=== PATIENT | female | born 1950 | race Caucasian/White ===

== ENCOUNTER 2019-08-15 08:10 | Outpatient (CLI) | payer MEDICARE, BC ==
[~2019-08-15] VITALS: Ht 167.6 cm; Wt 77.3 kg
[2019-08-15] VITALS (11 sets, daily range): BP systolic 127–154; BP diastolic 59–72
[2019-08-15] MEDS ORDERED: normal saline 500ml IV soln 500 ML IV ONE (09:45)
[2019-08-15] MEDS ORDERED: aminophylline 250mg/10ml inj. IV PRN (09:45)
[2019-08-15] MEDS ORDERED: regadenoson 0.4mg/5ml syringe IV PRN (09:45)
[2019-08-15] MEDS ORDERED: nitroGLYCERIN 0.4mg SUBLingual tab SL PRN (09:45)
== END 2019-08-15 23:59 | disposition home or self-care (01) ==
LOC: RAD 08:10
PROVIDERS: ATTEND Internal Medicine Cardiovascular Disease
DX: R94.30 Abnormal result of cardiovascular function study, unspecified (principal); R06.02 Shortness of breath; Z01.810 Encounter for preprocedural cardiovascular examination
CPT/HCPCS: 78452; 93017; A9500; J2785; J7040

== ENCOUNTER 2023-06-22 10:51 | Day surgery (SDC) | payer MEDICARE, BC ==
[2023-06-22] VITALS (11 sets, daily range): BP systolic 111–151; BP diastolic 55–77; PULSE 67–79; RESP 16; TEMP 98; O2SAT 93–98
[~2023-06-22] VITALS: Ht 167.6 cm; Wt 76.7 kg
[2023-06-22] MEDS ORDERED: diphenhydrAMINE 25mg capsule PO PRN (11:15)
[2023-06-22] MEDS ORDERED: LORazepam 0.5 MG tablet PO PRN (11:15)
[2023-06-22] MEDS ORDERED: normal saline 1,000 ML IV SCH (11:15)
[2023-06-22] MEDS ORDERED: nitroGLYCERIN 0.4mg SUBLingual tab SL PRN (11:15)
[2023-06-22] MEDS ORDERED: HYDR-3972 PO (11:27)
[2023-06-22] MEDS ORDERED: DICY20TA14 PO (11:27)
[2023-06-22] MEDS ORDERED: MULT-1085 PO (11:27)
[2023-06-22 12:02] LABS: BASOPHILS % (AUTO) 0.5 % (0-1); EOSINOPHILS # (AUTO) 0.2 X10'3 (0-0.9); EOSINOPHILS % (AUTO) 2.3 % (0-6); HEMATOCRIT 42.9 % (35.0-45.0); HEMOGLOBIN 14.2 g/dl (12.0-16.0); LYMPHOCYTES # (AUTO) 1.4 X10'3 (1.1-4.8); LYMPHOCYTES % (AUTO) 21.4 % (21-51); MEAN CORPUSCULAR HEMOGLOBIN 30.1 PG (27.0-31.0); MEAN CORPUSCULAR HGB CONC 33.2 g/dL (33.0-36.5); MEAN CORPUSCULAR VOLUME 90.6 FL (78-98); MEAN PLATELET VOLUME 6.4 FL (7.4-10.4); MONOCYTES # (AUTO) 0.7 X10'3 (0-0.9); MONOCYTES % (AUTO) 10.3 % (2-12); NEUTROPHILS # (AUTO) 4.3 X10'3 (1.8-7.7); NEUTROPHILS % (AUTO) 65.5 % (42-75); PLATELET COUNT 250 X10'3 (140-440); RED BLOOD COUNT 4.73 X10'6 (4.20-5.60); RED CELL DISTRIBUTION WIDTH 13.9 % (11.5-14.5); WHITE BLOOD COUNT 6.5 X10'3 (4.5-11.0)
[2023-06-22 12:10] LABS: ALBUMIN 4.1 G/DL (3.4-5.0); ANION GAP 9 (8-16); BLOOD UREA NITROGEN 26 MG/DL (7-18); BUN/CREATININE RATIO 38.2 (10.0-20.0); CALCIUM 9.7 MG/DL (8.5-10.1); CHLORIDE 102 MMOL/L (99-107); CREATININE 0.68 MG/DL (0.40-0.90); GLUCOSE 92 MG/DL (70-104); POTASSIUM 3.8 MMOL/L (3.5-5.1); SODIUM 137 MMOL/L (135-145); TOTAL CARBON DIOXIDE 26.5 MMOL/L (24-32); eCRCL 71 ML/MIN; eGFR 85 ML/MIN
[2023-06-22] MEDS ORDERED: midazolam 1 mg/ML 2ml injection ONE (13:10)
[2023-06-22] MEDS ORDERED: LIDOcaine 1% 30ml preserv. free vial ONE (13:10)
[2023-06-22] MEDS ORDERED: heparin 1,000unit/ml 10ml vial 10 ML ONE (13:10)
[2023-06-22] MEDS ORDERED: iohexol 350MG/ML 100ml bottle IV ONE (13:10)
[2023-06-22] MEDS ORDERED: fentaNYL/PF 50MCG/1 ML 2ML syringe ONE (13:10)
[2023-06-22] MEDS ORDERED: iohexol 350 MG/ML 50ML vial IV ONE ×2 (13:28→14:18)
[2023-06-22] MEDS ORDERED: metoprolol tartrate 1mg/ml inj IV ONE (14:22)
[2023-06-22] MEDS ORDERED: proCHLORperazine 10 MG/2 ml inj IV PRN (15:20)
[2023-06-22] MEDS ORDERED: OXAZEpam 15mg capsule PO PRN (15:20)
[2023-06-22] MEDS ORDERED: HYDROcodone/acetaminophen 5mg/325mg tablet PO PRN (15:20)
[2023-06-22] MEDS ORDERED: HYDROcodone/acetaminophen 10/325mg tab PO PRN (15:20)
[2023-06-22] MEDS ORDERED: ondansetron/PF 4mg/2ml inj IV PRN (15:20)
== END 2023-06-22 19:50 | disposition home or self-care (01) ==
LOC: SSTAY O 10:51
PROVIDERS: ATTEND Internal Medicine Cardiovascular Disease
DX: R94.39 Abnormal result of other cardiovascular function study (principal); I25.10 Atherosclerotic heart disease of native coronary artery without angina pectoris; I44.7 Left bundle-branch block, unspecified; I34.0 Nonrheumatic mitral (valve) insufficiency; Z88.2 Allergy status to sulfonamides; Z91.048 Other nonmedicinal substance allergy status; Z91.018 Allergy to other foods; Z90.710 Acquired absence of both cervix and uterus; Z98.890 Other specified postprocedural states; Z79.899 Other long term (current) drug therapy
CPT/HCPCS: 36415; 71046; 80048; 85025; 85610; 93005; 93458; 99152; 99153; J1644; J2250; J3010; J3490; J7030; Q0163; Q9967; A6258; C1760